=== PATIENT | female | born 1965 | race African-American/Black ===

== ENCOUNTER 2020-05-25 12:31 | Observation (INO) ==
[2020-05-25] MEDS ORDERED: METOPROLOL TARTRATE 5 MG/5 ML VIAL IV STA (12:52)
[2020-05-25] MEDS ORDERED: NITROGLYCERIN 2% OINT 1 INCH/GM PACK TOP STA (12:53)
[2020-05-25] MEDS ORDERED: ASPIRIN 325 MG TABLET PO STA (12:54)
[2020-05-25] MEDS ORDERED: METOPROLOL TARTRATE 5 MG/5 ML VIAL IV ONE (12:55)
[2020-05-25] MEDS ORDERED: NITROGLYCERIN 2% OINT 1 INCH/GM PACK TOP ONE (12:55)
[2020-05-25 13:08] LABS: Basophils % 0.2 % (0.0-0.8); Eosinophils % 0.5 % (0.00-10.9); Immature Granulocytes % 0.3 %; Immature Granulocytes Absolute 0.02 #; Lymphocytes # 1.7 10*3/uL (1.4-4.0); Lymphocytes % 27.7 % (21.3-54.2); Mean Corpuscular HGB Conc 32.4 GM/DL (32-36); Mean Corpuscular Volume 95.4 FL (87-102); Mean Platelet Volume 10.7 FL (9.6-12.0); Monocytes % 5.8 % (1.7-12.7); Neutrophils % 65.5 % (38.7-73.9); Platelet Count 340 T/CUMM (130-400); Red Blood Count 3.88 MC/CUMM (3.8-5.5); Red Cell Distribution Width 13.8 % (9.3-17.3)
[2020-05-25 13:17] LABS: Bilirubin,Urine Negative (Negative); Blood, Urine Negative (Negative); Glucose,Urine (UA) Negative (Negative); Ketones,Urine 5 mg/dL (Negative); Mucus,Urine Occasional /LPF (Occasional); Nitrite,Urine Negative (Negative); Protein,Urine Negative; Squamous Epithelial Cell,Urine Occasional /HPF (0-10); Urine Appearance CLEAR (Clear); Urine Color Yellow (Yellow); Urine Specific Gravity 1.017 (1.001-1.035)
[2020-05-25 13:24] LABS: Barbiturates Screen,Urine Negative (Negative); Benzodiazepines Screen,Urine Positive (Negative); Cannabinoid Screen,Urine Negative (Negative); Opiate Screen,Urine Positive (Negative); Phencyclidine Screen,Urine Negative (Negative)
[2020-05-25 13:29] LABS: Albumin 3.6 G/DL (3.4-5.0); Bilirubin,Total 0.8 MG/DL (0.2-1.0); Calcium 9.1 MG/DL (8.5-10.1); Osmolality,Calculated 279.3 MOS/KG (273-304); Potassium 3.1 MMOL/L (3.5-5.1); Total Protein 7.1 G/DL (6.4-8.2)
[2020-05-25] MEDS ORDERED: hydrALAZINE 20 MG/1 ML VIAL IV STA (13:51)
[2020-05-25] MEDS ORDERED: ONDANSETRON 4 MG/2 ML VIAL IV PRN (14:43)
[2020-05-25] MEDS ORDERED: GLUCAGON 1 MG VIAL IM PRN (14:43)
[2020-05-25] MEDS ORDERED: DEXTROSE 50% 25 GM/50 ML VIAL IV PRN (14:43)
[2020-05-25] MEDS ORDERED: hydrALAZINE 20 MG/1 ML VIAL IV PRN (14:47)
[2020-05-25] MEDS ORDERED: ENOXAPARIN 40 MG/0.4 ML SYRINGE SUBCUT SCH (15:00)
[2020-05-25 15:39] LABS: Troponin I < 0.015 NG/ML (0.00-0.045)
[2020-05-25] MEDS ORDERED: PNEUMOCOCCAL VACCINE (13 VALENT) 0.5 ML SYRINGE IM ONE (16:46)
[2020-05-25] MEDS: MORPHINE 4 MG/1 ML VIAL IV PRN (17:03)
[2020-05-25] MEDS ORDERED: oxyCODONE/ACETAMINOPHEN 5-325 MG TABLET PO ONE (18:10)
[2020-05-25 18:11] LABS: Troponin I < 0.015 NG/ML (0.00-0.045)
[2020-05-25] MEDS: POTASSIUM CHLORIDE 20 MEQ TABLET PO PRN (18:18)
[2020-05-25] MEDS ORDERED: MELATONIN 3 MG TABLET PO SCH (21:00)
[2020-05-25] MEDS ORDERED: TEMAZEPAM 15 MG CAPSULE PO SCH (21:00)
[2020-05-25] MEDS: oxyCODONE/ACETAMINOPHEN 5-325 MG TABLET PO SCH (21:08)
[2020-05-25] MEDS: DULoxetine 30 MG CAPSULE PO SCH (21:10)
[2020-05-25] MEDS: PREGABALIN 75 MG CAPSULE PO SCH (21:11)
[2020-05-25] MEDS: APIXABAN 5 MG TABLET PO SCH (21:12)
[2020-05-25 21:14] LABS: Troponin I < 0.015 NG/ML (0.00-0.045)
[2020-05-25] MEDS: FLUTICASONE 50 MCG NASAL SPRAY 16 GM BOTTLE BOTH NARES SCH (21:27)
[2020-05-26] MEDS: POTASSIUM CHLORIDE 20 MEQ TABLET PO PRN ×3 (00:45→05:22)
[2020-05-26] MEDS: MORPHINE 4 MG/1 ML VIAL IV PRN (04:00)
[2020-05-26 05:17] LABS: Basophils % 0.2 % (0.0-0.8); Eosinophils % 0.9 % (0.00-10.9); Hematocrit 35.3 VOL% (35.7-47.0); Hemoglobin 11.2 GM/DL (12.0-16.0); Immature Granulocytes % 0.2 %; Immature Granulocytes Absolute 0.01 #; Lymphocytes # 1.7 10*3/uL (1.4-4.0); Lymphocytes % 37.3 % (21.3-54.2); Mean Corpuscular HGB Conc 31.7 GM/DL (32-36); Mean Corpuscular Volume 95.7 FL (87-102); Monocytes % 11.6 % (1.7-12.7); Neutrophils % 49.8 % (38.7-73.9); Platelet Count 325 T/CUMM (130-400); Red Blood Count 3.69 MC/CUMM (3.8-5.5); Red Cell Distribution Width 13.7 % (9.3-17.3); White Blood Count 4.6 T/CUMM (4-12)
[2020-05-26 05:40] LABS: Albumin 3.2 G/DL (3.4-5.0); Bilirubin,Total 0.8 MG/DL (0.2-1.0); Calcium 8.9 MG/DL (8.5-10.1); Osmolality,Calculated 277.3 MOS/KG (273-304); Potassium 3.4 MMOL/L (3.5-5.1); Risk Ratio 1.86; Total Protein 6.4 G/DL (6.4-8.2); VLDL CHOLESTEROL 13.4 MG/DL
[2020-05-26 05:52] LABS: Eosinophils 2 % (0-10); Lymphocytes 38 % (20-55); Platelet Estimate Normal; Segmented Neutrophils 49 % (50-85); Total Cells Counted 100
[2020-05-26 05:53] LABS: Anisocytosis 1+; Hypochromasia 2+; Macrocytosis 1+; Reactive Lymphocytes 1+
[2020-05-26] MEDS: DULoxetine 30 MG CAPSULE PO SCH (08:17)
[2020-05-26] MEDS: APIXABAN 5 MG TABLET PO SCH (08:17)
[2020-05-26] MEDS: PREGABALIN 75 MG CAPSULE PO SCH ×2 (08:18→15:08)
[2020-05-26] MEDS: oxyCODONE/ACETAMINOPHEN 5-325 MG TABLET PO SCH (08:18)
[2020-05-26] MEDS: FLUTICASONE 50 MCG NASAL SPRAY 16 GM BOTTLE BOTH NARES SCH (08:18)
[2020-05-26] MEDS ORDERED: valACYclovir 500 MG TABLET PO SCH (09:00)
[2020-05-26] MEDS ORDERED: MULTIVITAMIN (CENTRUM) TABLET PO SCH (09:00)
[2020-05-26] MEDS ORDERED: PANTOPRAZOLE 40 MG TABLET PO SCH (09:00)
[2020-05-26] MEDS ORDERED: DILTIAZEM 60 MG TABLET PO SCH (09:30)
[2020-05-26 12:07] VITALS: BP 157/93
[2020-05-26] MEDS ORDERED: MAGNESIUM CITRATE 300 ML BOTTLE PO ONE (13:20)
== END 2020-05-26 15:25 | disposition home or self-care (01) ==
LOC: N.EDINP 12:31 → N.ED 12:31 → N.TELES 15:38
PROVIDERS: ADMIT Internal Medicine; ATTEND Internal Medicine

== ENCOUNTER 2020-05-28 14:36 | Observation (INO) ==
[2020-05-28] MEDS ORDERED: SODIUM CHLORIDE 0.9% 1,000 ML IV STA ×2 (15:15→17:07)
[2020-05-28] MEDS ORDERED: PANTOPRAZOLE 40 MG VIAL IV STA (15:17)
[2020-05-28 15:28] LABS: Basophils % 0.4 % (0.0-0.8); Eosinophils # 0.1 10*3/uL (0.0-0.87); Eosinophils % 1.3 % (0.00-10.9); Hemoglobin 10.1 GM/DL (12.0-16.0); Immature Granulocytes % 0.2 %; Immature Granulocytes Absolute 0.01 #; Lymphocytes # 1.8 10*3/uL (1.4-4.0); Lymphocytes % 33.3 % (21.3-54.2); Mean Corpuscular HGB Conc 31.6 GM/DL (32-36); Mean Corpuscular Volume 95.8 FL (87-102); Mean Platelet Volume 10.4 FL (9.6-12.0); Monocytes % 7.2 % (1.7-12.7); Neutrophils % 57.6 % (38.7-73.9); Platelet Count 337 T/CUMM (130-400); Red Blood Count 3.34 MC/CUMM (3.8-5.5); White Blood Count 5.3 T/CUMM (4-12)
[2020-05-28 15:51] LABS: Alanine Aminotransferase 32 U/L (13-56); Albumin 3.2 G/DL (3.4-5.0); Alkaline Phosphatase 192 U/L (45-117); Aspartate Amino Transferase 28 U/L (0-37); Bilirubin,Total < 0.39 MG/DL (0.2-1.0); Blood Urea Nitrogen 16 MG/DL (7-18); Calcium 8.6 MG/DL (8.5-10.1); Carbon Dioxide 28 MMOL/L (21-32); Estimated Glom Filtration Rate 49 ML/MIN; Glucose 109 MG/DL (74-106); Osmolality,Calculated 274.8 MOS/KG (273-304); Potassium 3.4 MMOL/L (3.5-5.1); Sodium 137 MMOL/L (136-145); Total Protein 6.5 G/DL (6.4-8.2)
[2020-05-28] MEDS ORDERED: ONDANSETRON 4 MG/2 ML VIAL IV STA (16:47)
[2020-05-28] MEDS ORDERED: ONDANSETRON 4 MG/2 ML VIAL ONE (16:47)
[2020-05-28] MEDS ORDERED: DEXTROSE 50% 25 GM/50 ML VIAL IV PRN (17:45)
[2020-05-28] MEDS ORDERED: GLUCAGON 1 MG VIAL IM PRN (17:45)
[2020-05-28] MEDS ORDERED: ENOXAPARIN 40 MG/0.4 ML SYRINGE SUBCUT SCH (18:00)
[2020-05-28] MEDS ORDERED: KETOROLAC 30 MG/1 ML VIAL ONE (18:05)
[2020-05-28] MEDS ORDERED: METOCLOPRAMIDE 10 MG/2 ML VIAL IV STA (18:05)
[2020-05-28] MEDS: APIXABAN 5 MG TABLET PO SCH (21:24)
[2020-05-28] MEDS: PREGABALIN 75 MG CAPSULE PO SCH (21:24)
[2020-05-28] MEDS: SODIUM CHLORIDE 0.9% 1,000 ML IV SCH (21:24)
[2020-05-28] MEDS: FLUTICASONE 50 MCG NASAL SPRAY 16 GM BOTTLE BOTH NARES SCH (22:07)
[2020-05-29] MEDS: SODIUM CHLORIDE 0.9% 1,000 ML IV SCH (05:51)
[2020-05-29 05:57] LABS: Bilirubin,Urine Negative (Negative); Blood, Urine Negative (Negative); Glucose,Urine (UA) Negative (Negative); Ketones,Urine Negative (Negative); Nitrite,Urine Negative (Negative); Protein,Urine Negative; RBC,Urine <1 /HPF (0-4); Squamous Epithelial Cell,Urine Occasional /HPF (0-10); Urine Appearance CLEAR (Clear); Urine Color Yellow (Yellow); Urine Specific Gravity 1.024 (1.001-1.035); Urine Urobilinogen < 2.0 EU/DL (0.2-1.0); WBC,Urine <1 /HPF (0-6)
[2020-05-29 06:35] LABS: Basophils % 0.4 % (0.0-0.8); Eosinophils # 0.1 10*3/uL (0.0-0.87); Hematocrit 32.5 VOL% (35.7-47.0); Hemoglobin 10.3 GM/DL (12.0-16.0); Immature Granulocytes % 0.4 %; Immature Granulocytes Absolute 0.02 #; Lymphocytes # 1.7 10*3/uL (1.4-4.0); Lymphocytes % 37.7 % (21.3-54.2); Mean Corpuscular HGB Conc 31.7 GM/DL (32-36); Mean Corpuscular Volume 97.3 FL (87-102); Mean Platelet Volume 10.7 FL (9.6-12.0); Monocytes % 11.9 % (1.7-12.7); Neutrophils % 47.6 % (38.7-73.9); Platelet Count 313 T/CUMM (130-400); Red Blood Count 3.34 MC/CUMM (3.8-5.5); White Blood Count 4.6 T/CUMM (4-12)
[2020-05-29 07:30] LABS: Anisocytosis 1+; Band Neutrophils 1 % (0-10); Eosinophils 1 % (0-10); Lymphocytes 39 % (20-55); Platelet Estimate Normal; Segmented Neutrophils 47 % (50-85); Smudge Cells Few; Total Cells Counted 100
[2020-05-29 07:31] LABS: Burr Cells Few; Macrocytosis 1+
[2020-05-29] MEDS: PREGABALIN 75 MG CAPSULE PO SCH (08:31)
[2020-05-29] MEDS: APIXABAN 5 MG TABLET PO SCH (08:32)
[2020-05-29] MEDS: FLUTICASONE 50 MCG NASAL SPRAY 16 GM BOTTLE BOTH NARES SCH (08:34)
[2020-05-29 08:36] VITALS: BP 117/72
[2020-05-29] MEDS ORDERED: PANTOPRAZOLE 40 MG TABLET PO SCH (09:00)
[2020-05-29] MEDS ORDERED: POLYETHYLENE GLYCOL POWDER 17 GM PACK PO SCH (09:00)
== END 2020-05-29 11:09 | disposition home or self-care (01) ==
LOC: N.ED 14:36 → N.EDINP 14:36 → N.TELEN 21:00
PROVIDERS: ADMIT Emergency Medicine; ATTEND Emergency Medicine